=== PATIENT | female | born 1975 | race Caucasian/White ===

== ENCOUNTER 2017-10-13 10:26 | Emergency (ER) | payer OTHER ==
[~2017-10-13] VITALS: Ht 162.6 cm; Wt 91.4 kg
[2017-10-13 10:55] LABS: HEMATOCRIT 39.3 % (36.0-46.0); MCHC 33.1 G/DL (30.0-36.0); MCV 84.5 FL (83-99); PLATELET COUNT 344 K/uL (156-360); RBC DIS.WIDTH-CV 14.7 % (11.8-14.6); RBC DIS.WIDTH-SD 45.1 % (39-53); RED BLOOD COUNT 4.65 M/uL (3.80-5.20); WHITE BLOOD COUNT 9.7 K/uL (4.1-10.2)
[2017-10-13 11:04] LABS: ALBUMIN 3.9 g/dL (3.2-4.8); CHLORIDE 107 mEq/L (99-109); POTASSIUM 4.3 mEq/L (3.7-5.4); SODIUM 138 mEq/L (136-147)
[2017-10-13 11:06] LABS: GLUCOSE 123 mg/dL (70-99)
[2017-10-13 11:07] LABS: TOTAL PROTEIN 7.4 g/dL (6.4-8.3)
[2017-10-13 11:08] LABS: TOTAL BILIRUBIN 0.5 mg/dL (0.0-1.0)
[2017-10-13 11:10] LABS: ALKALINE PHOSPHATASE 89 IU/L (3-129); CREATININE 0.7 mg/dL (0.6-1.3)
[2017-10-13 11:11] LABS: UREA NITROGEN (BUN) 10 mg/dL (9-23)
[2017-10-13 11:12] LABS: AST (GOT) 14 IU/L (2-34)
[2017-10-13 11:13] LABS: ALT (GPT) 15 IU/L (3-49)
[2017-10-13 11:19] LABS: GFR ESTIMATE (CALCULATED) > 59 mL/min/; QUANTITATIVE HCG < 4.0 MIU/ML
[2017-10-13 11:23] LABS: APPEARANCE CLEAR ((CLEAR)); BILIRUBIN NEGATIVE; BLOOD NEGATIVE; COLOR YELLOW ((YELLOW)); GLUCOSE (STRIP) NEGATIVE; KETONES NEGATIVE; LEUKOCYTES TRACE; NITRITE NEGATIVE; PROTEIN (STRIP) NEGATIVE; SPECIFIC GRAVITY 1.014 (1.000-1.030); UROBILINOGEN 0.2 MG/DL (0.2-1.0)
[2017-10-13 11:25] LABS: BACTERIA NONE SEEN /HPF; EPITHELIAL CELLS 1+ /HPF; MUCUS TRACE /LPF; RED BLOOD CELLS 0-5 /HPF (0-5); UCUL ADDED? NO; WHITE BLOOD CELLS 0-5 /HPF (0-5)
[2017-10-13] MEDS ORDERED: BENTYL10 MG PO (14:07)
[2017-10-13] MEDS ORDERED: GAS RELIEF125 MG PO (14:07)
[2017-10-13 14:30] VITALS: BP 160/91
== END 2017-10-13 14:32 | disposition home or self-care (01) ==
LOC: EME 10:26
DX: R14.0 Abdominal distension (gaseous) (principal); R10.9 Unspecified abdominal pain; J45.909 Unspecified asthma, uncomplicated; G47.30 Sleep apnea, unspecified
CPT/HCPCS: 74176; 80053; 81003; 84702; 85027; 99281; 99284; J7030